=== PATIENT | male | born 1970 | race Caucasian/White ===

== ENCOUNTER 2016-03-29 19:47 | Emergency (ER) | payer OTHER ==
--- NOTE | 2016-03-29 21:06 | UC ---
Respiratory Complaint HPI - HPI Summary HPI Summary: pt c/o nasal congestion, generalized malasie, cough, wheezing and SOB X 2 days. - History of Current Complaint Stated Complaint: UPPER RESPIRATORY COMPLAINT Time Seen by Provider: 03/29/16 20:57 Hx Obtained From: Patient Onset/Duration: Sudden Onset, Lasting Days Timing: Constant Severity Initially: Mild Severity Currently: Mild Character: Cough: Nonproductive Aggravating Factors: Exertion, Deep Breaths, Recumbent Position Associated Signs And Symptoms: Positive: Chills, Wheezing, URI, Nasal Congestion , Sinus Discomfort - Risk Factors Cardiac Risk Factors: Hypertension - Allergies/Home Medications Allergies/Adverse Reactions: Allergies Allergy/AdvReac Type Severity Reaction Status Date / Time No Known Allergies Allergy Verified 03/29/16 21:07 Home Medications: Home Medications BuPROPion XL* [Bupropion XL*] 300 mg PO DAILY 03/29/16 [History Confirmed ] Losartan TAB* [Cozaar TAB*] 50 mg PO DAILY 03/29/16 [History Confirmed 03/29/16] Multiple Vitamins W/ Minerals [Centrum Men] 1 tab PO 03/29/16 [History] Carver-3 Fatty Acids [Fish Oil] 1,000 mg PO 03/29/16 [History] Omeprazole CAP* [Prilosec CAP* 20 MG] 20 mg PO DAILY 03/29/16 [History Confirmed 03/29/16] PMH/Surg Hx/FS Hx/Imm Hx Previously Healthy: No - see pmh Cardiovascular History Of: Reports: Hypertension - Family History Known Family History: Positive: Other - positive [facility] for URI - Social History Occupation: Employed Full-time Lives: With Family Review of Systems Constitutional: Chills, Fatigue Skin: Negative Eyes: Negative ENT: Other - nasal congestion, PND, Respiratory: Shortness Of Breath, Cough Cardiovascular: Negative Gastrointestinal: Negative Genitourinary: Negative Motor: Negative Neurovascular: Negative Musculoskeletal: Myalgia Neurological: Negative Psychological: Negative All Other Systems Reviewed And Are Negative: Yes Physical Exam Triage Information Reviewed: Yes Appearance: Ill-Appearing ENT: Positive: Nasal congestion Neck exam: Normal Respiratory Exam: Normal Cardiovascular Exam: Normal Musculoskeletal Exam: Normal Neurological Exam: Normal Psychological Exam: Normal Skin Exam: Normal Respiratory Course/Dx - Differential Dx/Diagnosis Differential Diagnosis/HQI/PQRI: Bronchitis, Other - pneumonia Provider Diagnoses: Bronchitis Discharge - Discharge Plan Condition: Stable Disposition: HOME Prescriptions: Albuterol HFA INHALER* [Ventolin HFA Inhaler*] 1 - 2 puff INH Q4H PRN #1 mdi PRN Reason: Wheezing Azithromycin TAB* [Zithromax TAB (Z-SARITA) 250 mg #6 tabs] 2 tab PO .TODAY, THEN 1 DAILY #1 sarita predniSONE TAB* [Deltasone TAB*] 20 mg PO DAILY #4 tab Patient Education Materials: Acute Bronchitis (ED) Referrals: Willie Denton MD [Primary Care Provider] -
[2016-03-29 21:07] VITALS: BP 127/86
== END 2016-03-29 21:24 | disposition home or self-care (01) ==
LOC: UCCORT 19:47
DX: J40 Bronchitis, not specified as acute or chronic (principal)
CPT/HCPCS: 99212; G0463

== ENCOUNTER 2016-08-28 16:20 | Emergency (ER) | payer OTHER ==
--- NOTE | 2016-08-28 17:13 | UC ---
Throat Pain/Nasal Bryson HPI - HPI Summary HPI Summary: complaint of sore throat , cough and right ear pain that started 5 days ago choked on a taco thrusday night and since then his throat has been painful hurts to swallow intermittent headache denies fever and chills denies nasal congestion using cough drops with some relief taking acetaminophen twice a day with relief - History of Current Complaint Chief Complaint: UCGeneralIllness Stated Complaint: EAR/THROAT PAIN Time Seen by Provider: 08/28/16 16:42 Hx Obtained From: Patient - Allergies/Home Medications Allergies/Adverse Reactions: Allergies Allergy/AdvReac Type Severity Reaction Status Date / Time No Known Allergies Allergy Verified 03/29/16 21:07 Home Medications: Home Medications Acetaminophen [Acetaminophen ER] 1,950 mg PO BID 08/28/16 [History Confirmed ] Albuterol HFA INHALER* [Ventolin HFA Inhaler*] 1 - 2 puff INH Q4H PRN 08/28/16 [ History Confirmed 08/28/16] Naproxen Sodium [Naproxen Sodium 220 mg] 660 mg PO BEDTIME 08/28/16 [History Confirmed 08/28/16] PMH/Surg Hx/FS Hx/Imm Hx Previously Healthy: Yes Cardiovascular History: Hypertension Respiratory History: Asthma Psychological History: Anxiety, Depression - Surgical History Surgical History: Yes Surgery Procedure, Year, and Place: Deviated septum. ear surgery - Family History Known Family History: Positive: Other - positive [facility] for URI Negative: Cardiac Disease, Hypertension, Diabetes - Social History Occupation: Employed Full-time Lives: With Family Alcohol Use: Rare Substance Use Type: None Smoking Status (MU): Former Smoker Length of Time of Smoking/Using Tobacco: On and Off Since Age 14 When Did the Patient Quit Smoking/Using Tobacco: ~2014 Review of Systems Constitutional: Negative Skin: Negative Eyes: Negative ENT: Sore Throat, Ear Ache Respiratory: Cough Cardiovascular: Negative Gastrointestinal: Negative Genitourinary: Negative Motor: Negative Neurovascular: Negative Musculoskeletal: Negative Neurological: Headache Psychological: Negative All Other Systems Reviewed And Are Negative: Yes Physical Exam Triage Information Reviewed: Yes Appearance: Well-Appearing, No Pain Distress, Well-Nourished Vital Signs: Initial Vital Signs Temp 98.3 F 08/28/16 16:55 Pulse 85 08/28/16 16:55 Resp 16 08/28/16 16:55 BP 114/65 08/28/16 16:55 Pulse Ox 96 08/28/16 16:55 Vital Signs Reviewed: Yes Eyes: Positive: Conjunctiva Clear ENT: Positive: Pharyngeal erythema, TM bulging - right, Tonsillar swelling, Tonsillar exudate. Negative: Nasal congestion, Nasal drainage Neck: Positive: No Lymphadenopathy Respiratory: Positive: Lungs clear, Normal breath sounds, No respiratory distress, No accessory muscle use Cardiovascular: Positive: RRR, No Murmur, Pulses Normal Abdomen Description: Positive: Nontender, Soft Bowel Sounds: Positive: Present Musculoskeletal: Positive: No Edema Neurological: Positive: Alert Psychological Exam: Normal Skin Exam: Normal Throat Pain/Nasal Course/Dx - Differential Dx/Diagnosis Differential Diagnosis/HQI/PQRI: Otitis Media, Pharyngitis, Tonsillitis Provider Diagnoses: otitis media right. tonsillitis Discharge - Discharge Plan Condition: Stable Disposition: HOME Prescriptions: Penicillin VK TAB* [Penicillin VK 250 mg Tab*] 500 mg PO TID #30 tab Patient Education Materials: Otitis Media (ED), Tonsillitis (ED) Referrals: Ramakrishna Scanlon MD [Primary Care Provider] - Additional Instructions: Please start antibiotic as directed Increase fluids and rest Take acetaminophen or ibuprofen for fever or pain Please review your discharge instructions. If your symptoms do not improve please call your primary care provider or return to urgent care.
[2016-08-28 17:14] VITALS: BP 114/65
== END 2016-08-28 17:37 | disposition home or self-care (01) ==
LOC: UCCORT 16:20
DX: H66.91 Otitis media, unspecified, right ear (principal); J03.90 Acute tonsillitis, unspecified; F17.200 Nicotine dependence, unspecified, uncomplicated; F32.9 Major depressive disorder, single episode, unspecified; F41.9 Anxiety disorder, unspecified
CPT/HCPCS: 87651; 99212; G0463

== ENCOUNTER 2019-02-12 16:07 | Emergency (ER) | payer OTHER ==
[2019-02-12 16:28] VITALS: BP 151/89
[2019-02-12] MEDS ORDERED: Albuterol 2.5 MG/3 ML NEB.SOL* (0.083%) INH ONE (16:38)
[2019-02-12] MEDS ORDERED: Ipratropium 0.5MG/2.5ML NEB* 0.5 MG/2.5 ML NEB.SOLN INH ONE (16:38)
--- NOTE | 2019-02-12 16:44 | UC ---
Respiratory Complaint HPI - HPI Summary HPI Summary: 48 yo male with one week hx of progressively worsening wheezing no fever nebs not as effective states its triggered by wheezing - History of Current Complaint Chief Complaint: UCRespiratory Stated Complaint: COUGH, CHEST TIGHTNESS, SOB, WHEEZING Time Seen by Provider: 02/12/19 16:23 Hx Obtained From: Patient Onset/Duration: Gradual Onset, Lasting Days Timing: Constant Severity Initially: Moderate Severity Currently: Moderate Pain Intensity: 0 Pain Scale Used: 0-10 Numeric Character: Cough: Nonproductive Aggravating Factors: Nothing Alleviating Factors: Nothing Associated Signs And Symptoms: Positive: Wheezing, Nasal Congestion. Negative: Dyspnea, Fever, Chills, Pleuritic Chest Pain, Hemoptysis, Dizziness, Calf Pain, Calf Swelling, Edema, Hoarseness, Sinus Discomfort - Allergies/Home Medications Allergies/Adverse Reactions: Allergies Allergy/AdvReac Type Severity Reaction Status Date / Time seasonal Allergy Difficulty Uncoded 02/12/19 16:29 Breathing Home Medications: Home Medications Acetaminophen [Tylenol Arthritis] 1,300 mg PO TID PRN 02/12/19 [History Confirmed 02/12/19] Albuterol 2.5MG/3ML (0.083%)* [Ventolin 2.5 MG/3 ML NEB.ALEXANDRA*] 2.5 mg INH Q2H PRN 02/12/19 [History Confirmed 02/12/19] PMH/Surg Hx/FS Hx/Imm Hx Previously Healthy: Yes Respiratory History: COPD, Asthma, Bronchitis - Surgical History Surgical History: Yes Surgery Procedure, Year, and Place: Deviated septum. ear surgery - Family History Known Family History: Positive: Other - positive [facility] for URI Negative: Cardiac Disease, Hypertension, Diabetes - Social History Alcohol Use: Rare Substance Use Type: None Smoking Status (MU): Former Smoker Length of Time of Smoking/Using Tobacco: On and Off Since Age 14 When Did the Patient Quit Smoking/Using Tobacco: ~2014 Review of Systems All Other Systems Reviewed And Are Negative: Yes Constitutional: Positive: Negative Skin: Positive: Negative Eyes: Positive: Negative ENT: Positive: Sinus Congestion Respiratory: Positive: Shortness Of Breath, Other - wheezing Cardiovascular: Positive: Negative Gastrointestinal: Positive: Negative Genitourinary: Positive: Negative Motor: Positive: Negative Neurovascular: Positive: Negative Musculoskeletal: Positive: Negative Neurological: Positive: Negative Psychological: Positive: Negative Physical Exam Triage Information Reviewed: Yes Appearance: Well-Appearing, No Pain Distress, Well-Nourished Vital Signs: Initial Vital Signs Temp 98.7 F 02/12/19 16:25 Pulse 102 02/12/19 16:25 Resp 24 02/12/19 16:25 BP 151/89 02/12/19 16:25 Pulse Ox 97 02/12/19 16:25 Vital Signs Reviewed: Yes Eyes: Positive: Conjunctiva Clear ENT: Positive: Hearing grossly normal, Nasal congestion, TMs normal, Uvula midline. Negative: Nasal drainage, Tonsillar swelling, Tonsillar exudate, Trismus, Muffled voice, Hoarse voice, Sinus tenderness Neck: Positive: Supple, Nontender, No Lymphadenopathy Respiratory: Positive: Wheezing. Negative: Lungs clear, Normal breath sounds, Respiratory distress, Decreased breath sounds Cardiovascular: Positive: RRR Musculoskeletal: Positive: ROM Intact, No Edema Neurological: Positive: Alert Psychological Exam: Normal Skin Exam: Normal Respiratory Course/Dx - Differential Dx/Diagnosis Provider Diagnosis: Bronchospasm Discharge ED - Sign-Out/Discharge Documenting (check all that apply): Patient Departure All imaging exams completed and their final reports reviewed: No Studies - Discharge Plan Condition: Stable Disposition: HOME Prescriptions: Ipratropium 0.5MG/2.5ML NEB* [Atrovent 0.5 MG NEB.ALEXANDRA*] 0.5 mg INH Q4H PRN #1 meb.soln PRN Reason: Sob/Wheezing predniSONE 20 mg TAB [Deltasone 20 MG TAB*] 40 mg PO DAILY #8 tab Patient Education Materials: Wheezing (ED) Referrals: Ramakrishna Scanlon MD [Primary Care Provider] - 5 Days (if not better ) Additional Instructions: to ER for new or worsening symptoms - Billing Disposition and Condition Condition: STABLE Disposition: Home
== END 2019-02-12 17:22 | disposition home or self-care (01) ==
LOC: UCCORT 16:07
DX: J44.9 Chronic obstructive pulmonary disease, unspecified (principal); Z87.891 Personal history of nicotine dependence; Z91.09 Other allergy status, other than to drugs and biological substances
CPT/HCPCS: 99212; G0463; J7512

== ENCOUNTER 2023-09-17 09:22 | Observation (INO) ==
[2023-09-17 09:58] LABS: ABS Basophils 0.1 10^3/uL (0.0-0.1); ABS Lymphocytes 1.2 10^3/uL (1.0-4.8); ABS Monocytes 0.4 10^3/uL (0.0-1.1); Eosinophil % 0.8 %; Hematocrit 40.9 % (38-53); INR 1.07 (0.83-1.13); Lymphocyte % 21.4 %; Mean Corpuscular Hemoglobin 31.4 pg (27-33); Mean Corpuscular Hgb Conc 34.2 g/dL (31-36); Mean Corpuscular Volume 91.6 fL (80-97); Mean Platelet Volume 8.6 fL (7.5-11.2); Nucleated Red Blood Cells % 0.1 %/100WBC (0.0-0.8); Platelet Count 219 10^3/uL (150-450); Red Blood Count 4.46 10^6/uL (4.06-5.63); Red Cell Distribution Width 13.1 % (12-17); White Blood Count 5.7 10^3/uL (3.6-10.2)
[2023-09-17 10:39] LABS: Albumin 4.7 g/dL (3.2-5.2); Creatinine, Serum 0.97 mg/dL (0.67-1.17); Globulin 2.3 g/dL (2-4); Total Bilirubin 1.2 mg/dL (0.2-1.0); eGFR CKD-EPI 93.9 (>60)
[2023-09-17 10:57] LABS: Potassium 4.2 mmol/L (3.5-5.0)
[2023-09-17 11:29] LABS: C Reactive Protein 7.76 mg/L (<8.01)
[2023-09-17 11:37] LABS: High Sensitivity Troponin 1 Hr 35 pg/mL (<20)
[2023-09-17] MEDS ORDERED: NON FORMULARY MED (Albuterol-Budesonide [Airsupra] 90-80 mcg/actuation HFA aerosol inhaler INH PRN (15:32)
[2023-09-17] MEDS: Nitroglycerin 0.4 mg/hr PATCH (10 mg) TRANSDERM ONE (16:44)
[2023-09-17 17:11] LABS: HDL Cholesterol 35.7 mg/dL
[2023-09-17] MEDS: Enoxaparin 40 MG/0.4 ML SYR SUBCUT SCH (17:15)
[2023-09-17] MEDS: Aspirin EC 81 mg TAB.EC (enteric coated) PO SCH (17:15)
[2023-09-17] MEDS: FLUTICAS/UMECLI/VILANT 200-62.5-25 MDI (NF) INH SCH (17:27)
[2023-09-17 18:33] LABS: High Sensitivity Troponin 3 Hr 37 pg/mL (<20)
[2023-09-17] MEDS: METFORMIN 500 MG PO SCH (22:09)
[2023-09-18 05:36] LABS: Calcium 10.1 mg/dL (8.6-10.3); Creatinine, Serum 0.94 mg/dL (0.67-1.17); Magnesium 1.7 mg/dL (1.9-2.7); Phosphorus 3.8 mg/dL (2.5-5.0); Potassium 4.1 mmol/L (3.5-5.0); eGFR CKD-EPI 97.5 (>60)
[2023-09-18] MEDS: Albuterol/Ipratropium NEB.SOL (2.5/0.5 MG) 3 ML NEB.SOLN INH PRN (05:53)
[2023-09-18] MEDS: Magnesium Sulf 4 GM/100 ML IV 4,000 MG/100 ML BAG IVPB ONE (08:38)
[2023-09-18] MEDS ORDERED: Sulfur Hexaflouride MICROSPHR 25 MG VIAL ONE ×2 (09:29→15:15)
[2023-09-18 14:31] VITALS: BP 126/86
[2023-09-18] MEDS ORDERED: PTO:Metformin ER 500 mg TAB (NF) PO SCH (21:00)
== END 2023-09-18 16:37 | disposition home or self-care (01) ==
LOC: EDHOLD 09:22 → ED 09:22 → SUATTDRO 14:23 → MEDTELE 15:27
PROVIDERS: ADMIT Internal Medicine; ATTEND Student in an Organized Health Care Education/Training Program